=== PATIENT | male | born 1990 ===

== ENCOUNTER 2018-01-05 14:52 | Emergency (ER) | payer OTHER ==
[2018-01-05 15:05] VITALS: RESP 16; TEMP 98.8
--- NOTE | 2018-01-05 16:06 | C.PDOC ---
History Of Present Illness 27 y/o male presents to ED with c/o redness, itching and swelling to eyes for 5 days. Patient states right eyes began first with symptoms and then left eye. Three days ago he notes to have "blood" in his left eye. Patient admits to occasional blurry vision. Notes he went to the [facility] was was prescribed PO antibiotics, boric acid to wash eyes and eye drops. Denies improvement prompting ED visit. Denies heavy lifting, direct trauma, fever, FB sensation, known allergens, or any other complaints at this time. Time Seen by Provider: 01/05/18 15:15 Chief Complaint (Nursing): Eye Problem History Per: Patient History/Exam Limitations: no limitations Onset/Duration Of Symptoms: Days Current Symptoms Are (Timing): Still Present Quality: Other Associated Symptoms: Pain, Swelling Past Medical History Reviewed: Historical Data, Nursing Documentation, Vital Signs Vital Signs: Last Vital Signs Temp 98.8 F 01/05/18 16:37 Pulse 86 01/05/18 16:37 Resp 16 01/05/18 16:37 BP 126/70 01/05/18 16:37 Pulse Ox 99 01/05/18 21:26 - Medical History PMH: No Chronic Diseases Surgical History: No Surg Hx Family History: States: No Known Family Hx - Social History Hx Alcohol Use: No Hx Substance Use: No - Immunization History Hx Tetanus Toxoid Vaccination: No Hx Influenza Vaccination: No Hx Pneumococcal Vaccination: No Review Of Systems Constitutional: Negative for: Fever, Chills Eyes: Positive for: Pain, Redness Cardiovascular: Negative for: Chest Pain Respiratory: Negative for: Cough, Shortness of Breath Skin: Negative for: Rash Physical Exam - Physical Exam Appears: Non-toxic, No Acute Distress Skin: Warm, Dry, No Rash Head: Atraumatic, Normacephalic Eye(s): bilateral: PERRL, EOMI, Other (Conjunctiva injection to right eye. subconjunctival hemorrhage on left eye. ) Nose: Normal Oral Mucosa: Moist Neck: Normal ROM, Supple Chest: Symmetrical Cardiovascular: Rhythm Regular Respiratory: Normal Breath Sounds, No Accessory Muscle Use, No Rales, No Rhonchi , No Wheezing Neurological/Psych: Oriented x3, Normal Speech, Normal Cognition ED Course And Treatment O2 Sat by Pulse Oximetry: 99 (RA) Pulse Ox Interpretation: Normal Progress Note: Eyes were irrigated. Visual acuity 20/25 b/l. Case discussed with Dr Gordon who suggests to have pt see him in the office tomorrow morning. Pt was instructed to stop using Boric acid. Pt verbalized understanding. SESAR Klein translated. Case discussed with Dr Sue, alvin sharif plan and discharge. Disposition - Disposition Referrals: Donovan Gordon MD [Staff Provider] - Disposition: HOME/ ROUTINE Disposition Time: 16:03 Condition: STABLE Additional Instructions: Krunal un seguimiento con el oculista en 1-2 good. Regrese a ER si symtpoms persisten o empeoran. 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 - Scribe Statement The provider has reviewed the documentation as recorded by the Sameeraiblaisha Fitzgerald All medical record entries made by the Marlin were at my direction and personally dictated by me. I have reviewed the chart and agree that the record accurately reflects my personal performance of the history, physical exam, medical decision making, and the department course for this patient. I have also personally directed, reviewed, and agree with the discharge instructions and disposition.
[2018-01-05] MEDS ORDERED: Fluorescein 1 mg Ophthalmic Strip OU ONE (16:08)
[2018-01-05 16:37] VITALS: BP 126/70; PULSE 86
[2018-01-05 21:23] VITALS: O2SAT 99
== END 2018-01-05 16:40 | disposition home or self-care (01) ==
LOC: C.ER 14:52
DX: H11.32 Conjunctival hemorrhage, left eye (principal); H10.9 Unspecified conjunctivitis